=== PATIENT | female | born 1970 | race Caucasian/White ===

== ENCOUNTER 2022-09-17 11:11 | Emergency (ER) | payer MEDICAID ==
[~2022-09-17] VITALS: Ht 175.3 cm; Wt 148.6 kg
[2022-09-17 11:41] LABS: Basophils # (auto) 0.1 10 ^3/uL (0-0.2); Basophils % (auto) 0.9 % (0.0-2.0); Eosinophils # (auto) 0 10 ^3/uL (0-0.8); Eosinophils % (auto) 0.7 % (0.0-7.0); Hematocrit 44.6 % (36.0-46.0); Hemoglobin 15.1 g/dL (12.2-16.2); Lymphocytes # (auto) 1.6 10 ^3/uL (0.4-5.4); Lymphocytes % (auto) 25.6 % (10.0-50.0); Mean Corpuscular Hemoglobin 29.5 pg (28.0-32.0); Mean Corpuscular Hgb Conc. 33.9 g/dL (32.0-36.0); Mean Corpuscular Volume 87.1 fL (80.0-100.0); Monocytes # (auto) 0.6 10 ^3/uL (0-1.3); Monocytes % (auto) 10.4 % (0.0-12.0); Neutrophils # (auto) 3.8 10 ^3/uL (1.6-8.6); Neutrophils % (auto) 62.4 % (37.0-80.0); Nucleated Red Blood Cells % 0.1 %; Red Blood Cells 5.13 10^6/uL (4.0-5.20); Red Cell Distribution Width 13.7 % (11.8-14.3); White Blood Cell 6.1 10^3/uL (4.4-10.8)
[2022-09-17 12:04] LABS: Albumin 3.9 g/dL (3.4-5.0); Potassium 4.1 mmol/L (3.5-5.1)
[2022-09-17 12:07] LABS: BUN/Creatinine Ratio 21.7 (10.0-20.0); Bilirubin, Total 0.6 mg/dL (0.2-1.0); Total Protein 7.2 g/dL (6.4-8.2)
[2022-09-17 12:27] LABS: Urine Bacteria FEW /hpf (None Seen); Urine Blood Negative /uL (Negative); Urine Mucus FEW (None Seen); Urine Specific Gravity 1.028 (1.001-1.035); Urine WBC 29 /hpf (0 - 5)
[2022-09-17] MEDS ORDERED: MET50T PO (13:27)
[2022-09-17 13:51] VITALS: BP 155/86; PULSE 84; RESP 18; O2SAT 96
== END 2022-09-17 13:53 | disposition home or self-care (01) ==
LOC: ER 11:11
DX: I10 Essential (primary) hypertension (principal); F41.8 Other specified anxiety disorders; Z79.899 Other long term (current) drug therapy
CPT/HCPCS: 36415; 71046; 80053; 81001; 84484; 85025; 93005

== ENCOUNTER 2024-08-03 09:34 | Emergency (ER) | payer MEDICAID ==
[~2024-08-03] VITALS: Ht 175.3 cm; Wt 142.2 kg
[~2024-08-03 09:34] MED LIST: MET50T PO
--- NOTE | 2024-08-03 09:47 | ED.PDOC ---
History of Present Illness(SKN HPI Comments 54-year-old female presents here with 6 days of erythema to her left forehead. She states it started off as a pimple on her left forehead and then she scratched it. And then the erythema started. She went to urgent care yesterday cellulitis and prescribed Bactrim. She presents today because now her left upper eyelid is swollen also and she has some new areas that have the wound. Denies any fever or chills. Denies any blurry vision or vision changes. No recent cough cold runny nose. Time Seen by MD: 09:46 Primary Care Provider: Jannie History of Present Illness: Nurses Notes, Medications, Allergies Allergies: Coded Allergies: NO KNOWN ALLERGIES (Unverified , 10/07/12) Home Meds Active Scripts Cephalexin (KEFLEX CAPSULE) 250 Mg Cp, 500 MG PO BID for 10 Days, #20 CAP Prov:AZALIA HUGHES MD 08/03/24 Metoprolol Tartrate (LOPRESSOR TABLET) 50 Mg Tb, 1 TAB PO BID, #60 TAB 5 Refills Prov:RAINER FLOWERS MD 09/17/22 Information Source: Patient Mode of Arrival: Ambulatory Severity: Moderate Timing: Days Duration: Since onset Location: Face, Neck Mechanism: Spontaneous Onset Developed: Facial Swelling, Rash Object: None Condition of Object: None Retained Foreign Body: No Wound Type: Unknown Immunization Status of Animal: NA Tetanus: Unknown History of: None Associated Signs and Symptoms: Redness, Swelling, Facial Swelling Past Medical History PAST MEDICAL HISTORY: High Lipids, HTN 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 She also has erythema and swelling to her left upper eyelid with similar plaque.) Neck: Full Range of Motion, Non-Tender, Normal, Normal Inspection Respiratory: Chest Non-Tender, Lungs Clear, No Accessory Muscle Use, No Respiratory Distress, Normal Breath Sounds Cardiovascular: No Edema, No Murmur, No Gallop, Normal Peripheral Pulses, Regu lar Rate/Rhythm Breast Exam: Deferred Gastrointestinal: No Organomegaly, Non Tender, No Pulsatile Mass, Normal Bowel Sounds, Soft Genitalia: Deferred Pelvic: Deferred Rectal: Deferred Extremities: No calf tenderness, Normal capillary refill, Normal inspection, Normal range of motion, Non-tender, No pedal edema Musculoskeletal : Apperance: Normal Neurologic: Alert, machine feller II-XII nml as Tested, No Motor Deficits, Normal Affect, Normal Mood, No Sensory Deficits Cerebellar Function: Normal Reflexes: Normal Skin: Dry Lymphatic: No Adenopathy Was a procedure done? Was a procedure done?: No Differential Diagnosis (INTG) Differential Diagnosis: Cellulitis Differential Diagnosis: Cellulitis, Contact Dermatitis, Impetigo Differential Diagnosis: N/A Abscess: N/A Differential Diagnosis: N/A X-Ray, Labs, Meds, VS Vital Signs Date Time Temp Pulse Resp B/P (MAP) Pulse Ox O2 Delivery O2 Flow Rate FiO2 08/03/24 10:14 97.8 82 16 149/84 (105) 94 97.8 08/03/24 10:13 Room Air* 0 21 08/03/24 09:42 98.0 92 20 162/94 (116) 97 98.0 54-year-old female presents here with what appears to be impetigo to her left forehead and left upper eyelid. There was no vision changes. No evidence of orbital cellulitis. At this time she is already on Bactrim which should have good coverage for impetigo. I have started her on Keflex also. She has not been cleaning her face at all. Advised her to use normal hygiene with normal soap and water to wash her face like always and keep the area clean and dry. Advised her this impetigo is a very contagious. Patient aware. Advised her if she has any vision changes anytime to come back to the ER. Patient agreeable. Time of 1ST Reevaluation: 10:14 Reevaluation 1ST: Unchanged Patient Education/Counseling: Diagnosis, Treatment Family Education/Counseling: No Family Present Departure 1 Departure Time of Disposition: 10:46 Impression: Primary Impression: Impetigo Disposition: 01 HOME / SELF CARE / HOMELESS Condition: Good Additional Instructions: Return to the ER if symptoms worsen or persist. Follow up with the primary care physician. e-Prescriptions Cephalexin (KEFLEX CAPSULE) 250 Mg Cp 500 MG PO BID for 10 Days, #20 CAP Prov: AZALIA HUGHES MD 08/03/24 Discharged With: Self Critical Care Note Critical Care Time?: No Stability Stability form required: No Heart Score Heart Score: Heart Score Response (Comments) Value History N/A 0 EKG N/A 0 Age N/A 0 Risk Factors N/A 0 Troponin N/A 0 Total 0 I personally scribed for AZALIA HUGHES MD ([email or web address]) on 08/03/24 at 09:47. Electronically submitted by Christina Kahn ([email or web address]). I personally scribed for AZALIA HUGHES MD ([email or web address]) on 08/03/24 at 09:50. Electronically submitted by Christina Kahn ([email or web address]). I personally scribed for AZALIA HUGHES MD ([email or web address]) on 08/03/24 at 10:00. Electronically submitted by Christina Kahn ([email or web address]). AZALIA HUGHES MD Aug 03, 2024 09:47
[2024-08-03] MEDS ORDERED: CEPH250C PO (09:54)
[2024-08-03 10:14] VITALS: BP 149/84; PULSE 82; RESP 16; TEMP 97.8; O2SAT 94
[2024-08-04] MEDS ORDERED: GABA-1308 PO (13:28)
[2024-08-04] MEDS ORDERED: ACYC400T16 PO (13:28)
== END 2024-08-03 10:15 | disposition home or self-care (01) ==
LOC: ER 09:34
DX: L01.00 Impetigo, unspecified (principal); I10 Essential (primary) hypertension; Z79.899 Other long term (current) drug therapy; Z98.51 Tubal ligation status

== ENCOUNTER 2024-08-04 12:02 | Emergency (ER) | payer MEDICAID ==
[~2024-08-04] VITALS: Ht 175.3 cm; Wt 139.3 kg
[~2024-08-04 12:02] MED LIST changes: +CEPH250C PO
[2024-08-04 13:05] VITALS: BP 158/69; PULSE 78; RESP 17; TEMP 98.7; O2SAT 98
[2024-08-04] MEDS ORDERED: ACYC400T16 PO (13:28)
[2024-08-04] MEDS ORDERED: GABA-1308 PO (13:28)
--- NOTE | 2024-08-04 13:28 | ED.PDOC ---
History of Present Illness(SKN HPI Comments 54-year-old female presented to the [facility] complaining of multiple lesion around her left side of her face with swollen periorbital area which is red and inflamed with a multiple vesicular papular and macular skin lesion following the upper upper branch of the facial nerve Patient went twice to the urgent care at [place] and they treated her with a Bactrim and Keflex no improvement Chief Complaint: Wound Check Time Seen by MD: 12:37 Primary Care Provider: Loy/Yvrose History of Present Illness: Nurses Notes, Medications, Allergies Allergies: Coded Allergies: NO KNOWN ALLERGIES (Unverified , 10/07/12) Home Meds Active Scripts Gabapentin (Gabapentin) 100 Mg Cap, 1 CAP PO TID for 10 Days, #30 CAP 2 Refills Prov:RAMA ROBERTSON MD 08/04/24 Acyclovir (ZOVIRAX TABLET) 400 Mg Tb, 2 TAB PO QID for 10 Days, #80 TAB 3 Refills Prov:RAMA ROBERTSON MD 08/04/24 Cephalexin (KEFLEX CAPSULE) 250 Mg Cp, 500 MG PO BID for 10 Days, #20 CAP Prov:AZALIA HUGHES MD 08/03/24 Metoprolol Tartrate (LOPRESSOR TABLET) 50 Mg Tb, 1 TAB PO BID, #60 TAB 5 Refills Prov:RAINER FLOWERS MD 09/17/22 Information Source: Patient Mode of Arrival: Ambulatory Severity: Moderate Timing: Days, Came on: Suddenly Duration: Since onset Location: Ear, Face, Head, Nose Mechanism: Spontaneous Onset Developed: Facial Swelling, Generalized erythema, Pruritus, Rash Wound Type: Papule, Other (Vesicular skin infection) Tetanus: UTD Associated Signs and Symptoms: Redness, Swelling, Facial Swelling, Headache Past Medical History PAST MEDICAL HISTORY: High Lipids, HTN 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 Family History Family History: No family hx of Cancer Social History Smoker: Non-Smoker Alcohol: Denies ETOH Use Drugs: Denies Drug Use Lives In: Home Constitutional: denies: chills, diaphoresis, fatigue, fever, malaise, sweats, weakness, others EENTM: denies: blurred vision, double vision, ear bleeding, ear discharge, ear drainage, ear pain, ear ringing, eye pain, eye redness, hearing loss, mouth pain, mouth swelling, nasal discharge, nose bleeding, nose congestion, nose pain, photophobia, tearing, throat pain, throat swelling, voice changes, others Respiratory: denies: cough, hemoptysis, orthopnea, SOB at rest, shortness of breath, SOB with excertion, stridor, wheezing, others Cardiovascular: denies: chest pain, dizzy spells, diaphoresis, Dyspnea on e xertion, edema, irregular heart beat, left arm pain, lightheadedness, palpitations, PND, syncope, others Gastrointestinal: denies: abdomen distended, abdominal pain, blood streaked bowels, constipated, diarrhea, dysphagia, difficulty swallowing, hematemesis, melena, nausea, poor appetite, poor fluid intake, rectal bleeding, rectal pain, vomiting, others Genitourinary: denies: abnormal vagina bleeding, burning, dyspareunia, dysuria, flank pain, frequency, hematuria, incontinence, pain, , vagina discharge, urgency, others Neurological: denies: dizziness, fainting, headache, left sided numbness, left sided weakness, numbness, paresthesia, pre-existing deficit, right sided numbness, right sided weakness, seizure, speech problems, tingling, tremors, weakness, others Musculoskeletal: denies: back pain, gout, joint pain, joint swelling, muscle pain, muscle stiffness, neck pain, others Integumetry: reports: lesions, rash, others (Herpes zoster dermatitis); denies: bruises, change in color, change in hair/nails, dryness, laceration, lumps, wounds Allergic/Immunocompromised: denies: Difficulty Healing, Frequent Infections, Hives, Itching, others Hematologic/Lymphatic: denies: anemia, blood clots, easy bleeding, easy bruising, swollen glands, others Endocrine: denies: excessive hunger, excessive sweating, excessive thirst, excessive urination, flushing, intolerance to cold, intolerance to heat, unexplained weight gain, unexplained weight loss, others Psychiatric: denies: anxiety, bipolar disorder, depression, hopeless, panic disorder, schizophrenia, sleepless, suicidal, others All Other Systems: Reviewed and Negative Physical Exam General Appearance: Mild Distress, Moderate Distress, Obese HEENT: Normal ENT Inspection, PERRL/EOMI, Other (Sided periorbital swelling inflammation the eye is not involved) Neck: Full Range of Motion, Non-Tender, Normal, Normal Inspection Respiratory: Chest Non-Tender, Lungs Clear, No Accessory Muscle Use, No Respiratory Distress, Normal Breath Sounds Cardiovascular: No Edema, No JVD, No Murmur, No Gallop, Normal Peripheral Pulses, Regular Rate/Rhythm Breast Exam: Deferred Gastrointestinal: No Organomegaly, Non Tender, No Pulsatile Mass, Normal Bowel Sounds, Soft Genitalia: Deferred Pelvic: Deferred Rectal: Deferred Extremities: No calf tenderness, Normal capillary refill, Normal inspection, Normal range of motion, Non-tender, No pedal edema Neurologic: Alert, blood bank laboratory professional II-XII nml as Tested, No Motor Deficits, Normal Affect, Normal Mood, No Sensory Deficits Cerebellar Function: Normal Reflexes: Normal Skin: Rash, Warm, NOT DONE (Vitals and facial herpes zoster dermatitis) Peripheral Pulses: 1+ carotid (R), 1+ carotid (L) Lymphatic: No Adenopathy Was a procedure done? Was a procedure done?: No Differential Diagnosis (INTG) Differential Diagnosis: Cellulitis Differential Diagnosis: Cellulitis, Contact Dermatitis, Herpes Zoster/Simplex Differential Diagnosis: Cellulitis Abscess: Cellulitis Differential Diagnosis: Cellulitis X-Ray, Labs, Meds, VS Vital Signs Date Time Temp Pulse Resp B/P (MAP) Pulse Ox O2 Delivery O2 Flow Rate FiO2 08/04/24 13:05 98.7 89 18 158/69 (98) 98 98.7 08/04/24 13:05 78 17 98 Room Air 08/04/24 12:32 97.8 89 18 137/80 (99) 97 97.8 X-Ray, Labs, Meds, VS Comment Emergency department eventful she will came in with swollen left side of her face with a dermatitis Patient was treated twice with the antibiotic Patient has herpes zoster dermatitis and will be treated occult adequately Time of 1ST Reevaluation: 12:45 Reevaluation 1ST: Unchanged Time of 2ND Reevaluation: 13:19 Reevaluation 2ND: Unchanged Consultation: PCP Patient Education/Counseling: Diagnosis, Treatment, Prognosis, Need For Follow Up, Other, Pt Unresponsive Family Education/Counseling: Diagnosis, Treatment, Prognosis, Need For Follow Up, Other, No Family Present Departure 1 Departure Time of Disposition: 13:20 Impression: Primary Impression: Herpes zoster dermatitis Additional Impression: Facial herpetic lesions Disposition: HOME / SELF CARE / HOMELESS Condition: Fair Additional Instructions: Discharge Note: Continue on your medications. Drink plenty of fluids. Follow up with your primary Dr. Take your prescriptions as ordered. If your condition becomes worse call and follow up with your primary Dr. for instructions or return to the ER if needed. Keep wound clean and dry. Thank you for visiting [facility]. e-Prescriptions Gabapentin (Gabapentin) 100 Mg Cap 1 CAP PO TID for 10 Days, #30 CAP 2 Refills Prov: RAMA ROBERTSON MD 08/04/24 Acyclovir (ZOVIRAX TABLET) 400 Mg Tb 2 TAB PO QID for 10 Days, #80 TAB 3 Refills Prov: RAMA ROBERTSON MD 08/04/24 Discharged With: Self Critical Care Note Critical Care Time?: No Stability Stability form required: No Heart Score Heart Score: Heart Score Response (Comments) Value History N/A 0 EKG N/A 0 Age 45-64 1 Risk Factors 1 or 2 risk factors 1 Troponin N/A 0 Total 2 RAMA ROBERTSON MD Aug 04, 2024 13:28
== END 2024-08-04 13:33 | disposition home or self-care (01) ==
LOC: ER 12:02
DX: B02.8 Zoster with other complications (principal); I10 Essential (primary) hypertension; E78.5 Hyperlipidemia, unspecified; Z98.51 Tubal ligation status; Z87.59 Personal history of other complications of pregnancy, childbirth and the puerperium; Z79.899 Other long term (current) drug therapy